=== PATIENT | female | born 1955 | race Hispanic/Latino ===

== ENCOUNTER 2018-08-01 12:44 | Observation (INO) | payer BC ==
[~2018-08-01] VITALS: Ht 152.4 cm; Wt 71.7 kg
[~2018-08-01 12:44] MED LIST: LISINOPRIL10 MG PO
--- OUTSIDE RECORDS SUMMARY | 2018-08-01 12:48 | XMS REPORT | Clinical Summary ---
Author Author [facility] Address Unknown Phone Unavailable Care Team Providers Care Chief Operator Reformer Name Role Phone Brando Pitts MD PCP Allergies No Known Allergies Medications End Date Status Medication Sig Dispensed Refills Start Date 07/19/2018 Discontinued metoprolol tartrate Take 25 mg by 0 (LOPRESSOR) 25 mg tablet mouth 2 (two) times a day. 07/19/2018 Discontinued hydroCHLOROthiazide Take 25 mg by 0 (HYDRODIURIL) 25 MG mouth daily. tablet Active Problems Not on file Encounters Care Team Description Date Type Specialty Geraldine Allan Jr., MD COPD, mild (HCC) 07/03/2018 Hospital Radiology Encounter Geraldine Allan Jr., MD COPD, mild (HCC) (Primary Dx) 07/03/2018 Transcribe Access Orders after 07/31/2017 Social History Date Tobacco Use Types Packs/Day Years Used Current Every Day Smoker Cigarettes 0.5 Smokeless Tobacco: Never Used Alcohol Use Drinks/Week oz/Week Comments Yes 6 Standard 3.6 drinks or equivalent Sex Assigned at Date Recorded Not on file Industry Job Start Date Occupation Not on file Not on file Not on file Travel End Travel History Travel Start No recent travel history available. Last Filed Vital Signs Not on file Plan of Treatment Health Maintenance Due Date Last Done Comments CERVICAL CANCER SCREENING 1977 BREAST CANCER SCREENING 2006 COLON CANCER SCREENING 2006 SHINGLES VACCINES (#1) 2006 INFLUENZA VACCINE 11/15/2018 Procedures Comments Procedure Name Priority Date/Time Associated Diagnosis XR CHEST 2 VW Routine 07/03/2018 COPD, mild (HCC) 6:11 PM CDT after 07/31/2017 Results * XR Chest 2 Vw (07/03/2018 6:11 PM CDT) Narrative Performed At EXAMINATION:XR CHEST 2 VW [facility] CLINICAL HISTORY:J44.9 Chronic obstructive pulmonary diseaseunspecified, j44.9 TECHNIQUE:XR CHEST 2 VW COMPARISON:None. FINDINGS: Lines/tubes:None. Heart and mediastinum:The cardiac silhouette is within normal limits for size. There is atherosclerotic calcification and mild ectasia of the thoracic aorta. Lungs:There is minimal atelectasis/scarring at the lung bases.There is no focal consolidation. There is no evidence of pulmonary edema. Pleura:There is no pleural effusion. There is no pneumothorax. Bones and Soft Tissues:There is mild demineralization and degenerative change of the visualized skeleton. There is no acute or suspicious osseous abnormality. IMPRESSION: No acute cardiopulmonary abnormality. [facility]-[id number] Procedure Note Interface, Radiology Results Incoming - 07/03/2018 6:16 PM CDT EXAMINATION: XR CHEST 2 VW CLINICAL HISTORY: J44.9 Chronic obstructive pulmonary disease unspecified, j44.9 TECHNIQUE: XR CHEST 2 VW COMPARISON: None. FINDINGS: Lines/tubes: None. Heart and mediastinum: The cardiac silhouette is within normal limits for size. There is atherosclerotic calcification and mild ectasia of the thoracic aorta. Lungs: There is minimal atelectasis/scarring at the lung bases. There is no focal consolidation. There is no evidence of pulmonary edema. Pleura: There is no pleural effusion. There is no pneumothorax. Bones and Soft Tissues: There is mild demineralization and degenerative change of the visualized skeleton. There is no acute or suspicious osseous abnormality. IMPRESSION: No acute cardiopulmonary abnormality. [facility]-[id number] Performing Organization Address City/State/Zipcode Phone Number [facility] [address] [place] [address] after 07/31/2017 Insurance Payer Benefit Subscriber ID Type Phone Address Plan / Group BCBS BCBS xxxxxxxxxxxxxx PPO CHOICE PPO/CATHERINE REINOSO PPO Advance Directives Patient has advance care planning documents on file. For more information, kameron e contact: Abbe Cheng [address] [place] [address]
[2018-08-01 13:15] LABS: BASOPHILS % 0.1 % (0.0-1.0); EOSINOPHILS % 0.2 % (0.0-6.0); HEMATOCRIT 45.2 % (34.2-44.1); HEMOGLOBIN 16.4 g/dL (12.0-16.0); LYMPHOCYTES % 19.6 % (18.0-39.1); MEAN CORPUSCULAR HEMOGLOBIN 33.4 pg (28-32); MEAN CORPUSCULAR HGB CONC 36.3 g/dL (31-35); MEAN CORPUSCULAR VOLUME 92.1 fL (81-99); MONOCYTES # (AUTO) 0.6 (0.2-0.8); MONOCYTES % 5.5 % (4.4-11.3); NEUTROPHILS # (AUTO) 7.5 (2.1-6.9); NEUTROPHILS % 74.3 % (38.7-80.0); PLATELET COUNT 286 x10e3/uL (140-360); RED BLOOD COUNT 4.91 x10e6/uL (3.6-5.1); RED CELL DISTRIBUTION WIDTH 11.9 % (11.7-14.4)
[2018-08-01 13:27] LABS: INR 0.87; PARTIAL THROMBOPLASTIN TIME 25.2 seconds (23.8-35.5); PROTHROMBIN TIME 12.3 seconds (11.9-14.5)
[2018-08-01 13:34] LABS: ALANINE AMINOTRANSFERASE 17 IU/L (0-55); ALBUMIN 3.2 g/dL (3.5-5.0); ALBUMIN/GLOBULIN RATIO 0.9 (0.8-2.0); ALKALINE PHOSPHATASE 93 IU/L (40-150); ANION GAP 14.1 mmol/L (8-16); BLOOD UREA NITROGEN 12 mg/dL (7-26); BUN/CREATININE RATIO 14 (6-25); CARBON DIOXIDE 22 mmol/L (22-29); CHLORIDE 93 mmol/L (98-107); CREATINE KINASE 40 IU/L (29-168); CREATININE, SERUM 0.88 mg/dL (0.57-1.11); EST GLOMERULAR FILTRATION RATE > 60 ML/MIN (60-); GLUCOSE 122 mg/dL (74-118); POTASSIUM 3.1 mmol/L (3.5-5.1); SODIUM 126 mmol/L (136-145)
--- NOTE | 2018-08-01 13:40 | Diagnostic Imaging Report ---
Exam: Head CT without contrast History: Possible seizure Comparison studies: None Technique: Axial images were obtained from the skull base to the vertex. Coronal and sagittal images reconstructed from the axial data. Dose modulation, iterative reconstruction, and/or weight based adjustment of the mA/kV was utilized to reduce the radiation dose to as low as reasonably achievable. Radiation dose: Total DLP: 832 mGy*cm. Estimated effective dose: DLP x 0.015 Intravenous contrast: None Findings: Scalp: No abnormalities. Bones: No fractures, blastic or lytic lesions. Brain sulci: Mildly prominent. Ventricles: Mild compensatory dilatation. No hydrocephalus. Extra-axial spaces: No masses, no fluid collection. Parenchyma: No mass, acute hemorrhage or acute cortical infarct. Chronic vascular insult in the right REHABILITATION THERAPIST territory and along the right MCA-REHABILITATION THERAPIST cortical border zone with encephalomalacia and gliosis in the right lateral and inferior occipital lobe and right inferior parietal lobe. There are chronic lacunar infarcts in the right striatocapsular region as well as ill-defined and confluent hypodensities in the supratentorial white matter which are nonspecific but are most compatible with chronic microvascular ischemic changes. Sellar/suprasellar region: Mostly CSF filled sella. Craniocervical junction: Patent foramen magnum. No Chiari one malformation. Incidental findings: Atherosclerotic calcifications in the carotid siphons. IMPRESSION: No acute intracranial abnormalities. Chronic findings: 1. Mild generalized cerebral volume loss. 2. Right parieto-occipital vascular insult. 3. Right striatocapsular lacunar infarcts. 4. Moderate supratentorial microvascular ischemic changes. Signed by: Dr. Cristi Skinner M.D. on 08/01/2018 1:37 PM
--- OUTSIDE RECORDS SUMMARY | 2018-08-01 14:24 | XMS REPORT | Clinical Summary ---
Author Author [facility] Address Unknown Phone Unavailable Care Team Providers Care Glazing Department Supervisor Name Role Phone Brando Pitts MD PCP [...] osseous abnormality. IMPRESSION: No acute cardiopulmonary abnormality. [facility]-[id number] Procedure Note Interface, Radiology Results Incoming - [...] osseous abnormality. IMPRESSION: No acute cardiopulmonary abnormality. [facility]-[id number] Performing Organization Address City/State/Zipcode Phone Number [facility] [address] [place] [address] after 07/31/2017 Insurance Payer Benefit Subscriber ID Type Phone Address Plan / Group BCBS BCBS xxxxxxxxxxxxxx PPO CHOICE PPO/CATHERINE REINOSO PPO Advance Directives Patient has advance care planning documents on file. For more information, kameron e contact: Abbe Cheng [address] [place] [address]
--- OUTSIDE RECORDS SUMMARY | 2018-08-01 14:24 | XMS REPORT ---
Author Author [facility] Address Unknown Phone Unavailable Care Team Providers Care Executive Director Contract Shop Name Role Phone Karly HARRIS Unavailable Unavailable Problems This patient has no known problems. Allergies, Adverse Reactions, Alerts This patient has no known allergies or adverse reactions. Medications This patient has no known medications. Results Test Description Test Time Test Comments Text Results Atomic Results Result Comments CT BRAIN WO 2018-08-01 13:31:00 [place] [address] Patient Name: DANIEL CORONADO MR #: [id number] : 1955 Age/Sex: 63/F Req #: [id number] [facility] Physician: Ordered by: BENY HARRIS MD Report #: [id number] Location: ER Room/Bed: Procedure: [id number] CT/CT BRAIN WO Exam Date: 08/01/18 Exam Time: 1315 REPORT STATUS: Signed Exam: Head CT without contrast History: Possible seizure Comparison studies: None Technique: Axial images were obtained from the skull base to the vertex. Coronal and sagittal images reconstructed from the axial data. Dose modulation, iterative reconstruction, and/or weight based adjustment of the mA/kV was utilized to reduce the radiation dose to as low as reasonably achievable. Radiation dose: Total DLP: 832 mGy*cm. Estimated effective dose: DLP x 0.015 Intravenous contrast: None Findings: Scalp: No abnormalities. Bones: No fractures, blastic or lytic lesions. Brain sulci: Mildly prominent. Ventricles: Mild compensatory dilatation. No hydrocephalus. Extra-axial spaces: No masses, no fluid collection. Parenchyma: No mass, acute hemorrhage or acute cortical infarct. Chronic vascular insult in the right CHILDREN COUNSELOR territory and along the right MCA-CHILDREN COUNSELOR cortical border zone with encephalomalacia and gliosis in the right lateral and inferior occipital lobe and right inferior parietal lobe. There are chronic lacunar infarcts in the right striatocapsular region as well as ill-defined and confluent hypodensities in the supratentorial white matter which are nonspecific but are most compatible with chronic microvascular ischemic changes. Sellar/suprasellar region: Mostly CSF filled sella. Craniocervical junction: Patent foramen magnum. No Chiari one malformation. Incidental findings: Atherosclerotic calcifications in the carotid siphons. IMPRESSION: No acute intracranial abnormalities. Chronic findings: 1. Mild generalized cerebral volume loss. 2. Right parieto- occipital vascular insult. 3. Right striatocapsular lacunar infarcts. 4. Moderate supratentorial microvascular ischemic changes. Signed by: Dr. Juan Skinner M.D. on 08/01/2018 1:37 PM Dictated By: JUAN SKINNER MD [id number] Transcribed By: DARNELL on 08/01/18 1680 COPY TO: BENY HARRIS MD
[2018-08-01] MEDS ORDERED: IOPAMIDOL 370 MG/ML 200 ML INFUS..BTL INJ ONE (14:25)
[2018-08-01] MEDS ORDERED: SODIUM CHLORIDE 0.9% 50ML 50 ML ONE (14:25)
[2018-08-01] MEDS: DIPHENHYDRAMINE HCL INJ 50 MG/ML VIAL IV PRN ×2 (15:13→21:19)
[2018-08-01] MEDS: METHYLPREDNISOLONE SOD SUCC 125 MG/2ML VIAL IV SCH (15:13)
[2018-08-01] MEDS: SODIUM CHLORIDE 0.9% 1000ML 1,000 ML IV SCH (15:13)
[2018-08-01 15:40] VITALS: BP 127/60
[2018-08-01 15:52] VITALS: BP 127/60
[2018-08-01] MEDS ORDERED: METOPROLOL TART25 MG PO (16:59)
[2018-08-01] MEDS ORDERED: HYDROCHLOROTHIA25 MG (16:59)
--- NOTE | 2018-08-01 19:55 | NUR ---
Got report from previous nurse. Call light within reach. Patient in bed. Family at bedside.
[2018-08-01 20:00] VITALS: BP 107/54
[2018-08-01 21:00] VITALS: BP 107/54
--- NOTE | 2018-08-01 21:45 | NUR ---
Called and talked to Dr. Pitts about giving the patient metoprolol 25 mg PO tonight. He ordered to give the dose to the patient.
[2018-08-01] MEDS: METOPROLOL TARTRATE 25 MG TAB PO SCH (22:02)
[2018-08-02] VITALS: BP 106/56
[2018-08-02] MEDS: SODIUM CHLORIDE 0.9% 1000ML 1,000 ML IV SCH ×2 (02:10→20:15)
[2018-08-02 04:00] VITALS: BP 108/54
[2018-08-02 06:02] LABS: BASOPHILS % 0.1 % (0.0-1.0); HEMATOCRIT 37.7 % (34.2-44.1); HEMOGLOBIN 13.7 g/dL (12.0-16.0); LYMPHOCYTES # (AUTO) 1.1 (1.0-3.2); LYMPHOCYTES % 14.4 % (18.0-39.1); MEAN CORPUSCULAR HGB CONC 36.3 g/dL (31-35); MEAN CORPUSCULAR VOLUME 93.5 fL (81-99); MONOCYTES # (AUTO) 0.2 (0.2-0.8); NEUTROPHILS # (AUTO) 6.2 (2.1-6.9); NEUTROPHILS % 83.1 % (38.7-80.0); PLATELET COUNT 230 x10e3/uL (140-360); RED BLOOD COUNT 4.03 x10e6/uL (3.6-5.1); RED CELL DISTRIBUTION WIDTH 11.9 % (11.7-14.4)
[2018-08-02] MEDS: METHYLPREDNISOLONE SOD SUCC 125 MG/2ML VIAL IV SCH ×3 (06:07→21:57)
[2018-08-02 06:17] LABS: ALANINE AMINOTRANSFERASE 14 IU/L (0-55); ALBUMIN 2.7 g/dL (3.5-5.0); ALBUMIN/GLOBULIN RATIO 0.9 (0.8-2.0); ALKALINE PHOSPHATASE 70 IU/L (40-150); ANION GAP 12.7 mmol/L (8-16); BLOOD UREA NITROGEN 15 mg/dL (7-26); BUN/CREATININE RATIO 19 (6-25); CALCIUM 8.3 mg/dL (8.4-10.2); CARBON DIOXIDE 21 mmol/L (22-29); CHLORIDE 96 mmol/L (98-107); EST GLOMERULAR FILTRATION RATE > 60 ML/MIN (60-); GLUCOSE 225 mg/dL (74-118); SODIUM 127 mmol/L (136-145)
[2018-08-02 06:20] LABS: POTASSIUM 2.7 mmol/L (3.5-5.1)
--- NOTE | 2018-08-02 06:22 | NUR ---
Called and talked to Dr. Pitts about patient having a potassium of 2.7. Dr. Pitts ordered 40 mg IV and 40 mg PO now.
[2018-08-02] MEDS ORDERED: POTASSIUM CHLORIDE 10MEQ EA PO ONE (06:30)
[2018-08-02] MEDS ORDERED: POTASSIUM CHLORIDE 20MEQ/100ML 200 ML IV ONE (06:30)
[2018-08-02] MEDS ORDERED: CLONIDINE HCL 0.1 MG TAB PO PRN ×2 (07:00→07:15)
[2018-08-02] MEDS ORDERED: HYDROXYZINE HCL 25 MG TAB PO PRN (07:00)
[2018-08-02] MEDS ORDERED: ONDANSETRON HCL INJ 2MG/ML 2ML 2 MG/ML VIAL IV PRN (07:00)
[2018-08-02] MEDS ORDERED: ASPIRIN 81 MG CHEW TAB PO ONE (07:00)
[2018-08-02] MEDS: ALBUTEROL SULF 0.083% NEB SOLN 3 ML NEB NEB SCH ×4 (07:00→19:40)
[2018-08-02] MEDS ORDERED: SODIUM CHLORIDE 0.9% 250ML 0 ML ONE (07:06)
[2018-08-02] MEDS: POTASSIUM CHLORIDE 20MEQ/100ML 100 ML IV SCH ×2 (07:09→09:41)
--- NOTE | 2018-08-02 07:10 | NUR ---
Gave report to oncoming nurse. Patient in bed. Call light within reach. at bedside
[2018-08-02] MEDS ORDERED: ONDANSETRON HCL 4 MG ORAL DISINTEGRATING TAB PO PRN (07:15)
[2018-08-02] MEDS ORDERED: ATORVASTATIN 20 MG TAB PO SCH ×2 (07:30→21:00)
[2018-08-02] MEDS ORDERED: ATORVASTATIN 20 MG TAB PO ONE (07:30)
[2018-08-02 07:37] VITALS: BP 115/57
[2018-08-02 07:38] LABS: CREATINE KINASE MB 0.7 ng/mL (0-5.0)
[2018-08-02] MEDS ORDERED: POTASSIUM CHLORIDE 20MEQ/100ML 100 ML IV SCH (08:00)
[2018-08-02] MEDS: POTASSIUM CHLORIDE 20 MEQ TAB CR PO SCH (08:38)
[2018-08-02] MEDS: ASPIRIN 81 MG ENTERIC COATED PO SCH (08:38)
[2018-08-02] MEDS: METOPROLOL TARTRATE 25 MG TAB PO SCH ×2 (08:39→16:02)
[2018-08-02 08:47] VITALS: BP 115/57
--- NOTE | 2018-08-02 10:20 | History and Physical ---
This is a 63-year-old female comes in with apparent seizures. HISTORY OF PRESENTING ILLNESS: Ms. Lauryn Smith is a 63-year-old female with a history of hypertension, was in usual state of health until about 2 weeks ago the patient did experience some kind of chest pain, which was noted as pounding in the back and also chest pain which was pounding noted with palpation on anterior chest wall, the patient did not mind this, but yesterday, the patient had allergic reaction to either medication and/or to poison janki. The patient came into the clinic, was given Solu-Medrol and the patient went home after which the patient got extremely tired. The patient laid down, was having some food and apparently had a seizure, which lasted for about 2 minutes according to the did not have any postictal symptoms, did lose urine. In about 2 to 3 seconds, the patient gained consciousness and was aware of her surroundings. No chest pain noted at that time. Incidentally, the patient has had an appointment with the patent counsel and was scheduled for cardiac cath. PAST MEDICAL HISTORY: History of hypertension. MEDICATIONS: Include hydrochlorothiazide and metoprolol 25 mg twice a day. ALLERGIES: NO KNOWN DRUG ALLERGIES. PAST SURGICAL HISTORY: History of right wrist surgery. REVIEW OF SYSTEMS: Positive for chest pain. Positive for shortness of breath with exertion. No PND nor orthopnea. No nausea, vomiting, or diarrhea. No constipation. No rectal bleeding. No hematochezia. No hematemesis. Positive for edema as mentioned above. FAMILY HISTORY: Positive for hypertension and CAD. PHYSICAL EXAMINATION: VITAL SIGNS: Temperature is 97.1, pulse of 78, respirations of 18, blood pressure is 108/54, pulse oximetry of 96%. HEENT: Normocephalic, atraumatic. Pupils are reactive to light and accommodation. CVS: S1, S2 normal. Regular rate and rhythm. LUNGS: Decreased air entry into all lung cunha. ABDOMEN: Nontender, nondistended. EXTREMITIES: No clubbing. No cyanosis. Positive for trace edema. NEUROLOGIC: Cranial nerves normal. No focal deficits noted. Asymptomatic. LABORATORY VALUES: Initial white count is 10.03, hemoglobin of 16.4, hematocrit 45.2, neutrophil count was 74.3. Coags were normal. Chemistry, sodium of 126, potassium of 3.1, BUN of 12, creatinine 0.88, glucose of 122, total bilirubin was 1.6. IMAGING STUDIES: Brain CT was done, showed mild generalized volume loss, right occipital vascular insult, right striatocapsular lacunar infarct and moderate supratentorial microvascular changes. ASSESSMENT: 1. CVA. 2. Seizures. 3. Hypertension. 4. Chest pain. 5. Possible history of coronary artery disease. 6. Hypertension. 7. Smoking history. PLAN: 1. Do MRI of the brain, MRA of the brain and neck. 2. Echocardiogram will be ordered. 3. The patient will be put on aspirin. 4. O2 supplementation. The patient also has COPD. We will continue with albuterol and Atrovent treatments as needed. A consult with Neurology and Cardiology will be done. The patient will be put inpatient. Further recommendation and clinical course, we will continue to monitor the patient and the patient's thyroid and lipid panels will be assessed too. MD ROBBIE Sol/MODL /[id number]
[2018-08-02 11:57] LABS: CHOL/HDL RATIO 2.3 (3.0-3.6)
[2018-08-02 15:31] VITALS: BP 110/56
--- NOTE | 2018-08-02 15:54 | Diagnostic Imaging Report ---
EXAMINATION: Brain MRI and MR angiogram of the [place] and Neck without contrast. CLINICAL HISTORY: Cerebrovascular accident, seizure. COMPARISON: Head CT 08/01/2018 TECHNIQUE: Brain: Sagittal T2; axial DWI, T2, FLAIR, T1-IR, T2 gradient echo; coronal FLAIR. MRAs: 3D TOF and 2D-TOF images were obtained of the brain and neck. Image quality: Incomplete visualization of the [place] vessels on axial source images. Motion artifact limits evaluation of the MR angiogram of the neck. BRAIN MRI FINDINGS: Parenchyma: -Chronic infarct in the right FILTRATION SUPERVISOR territory and along the right MCA-FILTRATION SUPERVISOR cortical border zone with encephalomalacia and gliosis in the right lateral and inferior occipital lobe and right inferior parietal lobe. Mild right inferior cervical cortical T1 hyperintense laminar necrosis is noted. -Chronic lacunar infarcts in the right striatocapsular region and bilateral frontoparietal lobo radiata. -Scattered moderate confluent periventricular white matter T2 and FLAIR hyperintense foci, most likely nonspecific chronic microvascular ischemic changes. -No mass, hemorrhage, acute or chronic infarcts. Skull: Unremarkable. Vessels: Expected flow voids present in the major arteries and dural sinuses. Extra-axial spaces: No abnormal signal intensity or mass effect. Brain volume: Within normal limits for age. Ventricles: No hydrocephalus or displacement. Foramen magnum: Unremarkable. Sella: Unremarkable. Paranasal / mastoid sinuses: No significant inflammatory disease. MRA OF THE [place] OF [place] : The vessels of the [place] (including ICAs, ACAs and ACAs) and posterior circulation (including vertebral, basilar and fire claims adjuster) are patent, there is no evidence of significant stenosis. No vascular malformation or aneurysmal dilatation is identified. Anatomic variation: Anterior Communicating Artery: Patent Posterior Communicating Arteries: Patent bilaterally Vertebral arteries: Codominant MRA OF THE NECK: If present, stenosis of the carotid bulbs is measured based on NASCET criteria i.e area of maximum stenosis compared to the cervical ICA distal to the bulb. Aortic arch and origin of the vessels: Unremarkable. Right Carotid Artery: The common carotid, carotid bulb, internal and external carotid arteries at the level of the neck are normal in caliber, and patent, no evidence of stenoses. Left Carotid Artery: The common carotid, carotid bulb, internal and external carotid arteries at the level of the neck are normal in caliber, and patent, no evidence of stenoses. Vertebral Arteries: Both are normal in morphology and caliber. Both are codominant. No significant stenosis is seen. IMPRESSION: Brain: 1. No acute infarct. 2. Chronic right occipital and parietal infarct. 3. Moderate chronic microvascular ischemic changes and multiple chronic lacunar infarcts as detailed above. 4. Mild generalized brain thrombosis. MR angiograms: Suboptimal evaluation, grossly no large vessel occlusion or hemodynamically significant stenosis of the carotid or vertebral arteries in the head or neck. Signed by: Dr. Charo Guillermo M.D. on 08/02/2018 3:51 PM
--- NOTE | 2018-08-02 15:54 | Diagnostic Imaging Report ---
EXAMINATION: Brain MRI and MR angiogram of the [place] and Neck without contrast. CLINICAL HISTORY: Cerebrovascular accident, seizure. COMPARISON: Head CT 08/01/2018 TECHNIQUE: Brain: Sagittal T2; axial DWI, T2, FLAIR, T1-IR, T2 gradient echo; coronal FLAIR. MRAs: 3D TOF and 2D-TOF images were obtained of the brain and neck. Image quality: Incomplete visualization of the [place] vessels on axial source images. Motion artifact limits evaluation of the MR angiogram of the neck. BRAIN MRI FINDINGS: Parenchyma: -Chronic infarct in the right DIRECTOR PROSPECT territory and along the right MCA-DIRECTOR PROSPECT cortical border zone with encephalomalacia and gliosis in the right lateral and inferior occipital lobe and right inferior parietal lobe. Mild right inferior cervical cortical T1 hyperintense laminar necrosis is noted. -Chronic lacunar infarcts in the right striatocapsular region and bilateral frontoparietal lobo radiata. -Scattered moderate confluent periventricular white matter T2 and FLAIR hyperintense foci, most likely nonspecific chronic microvascular ischemic changes. -No mass, hemorrhage, acute or chronic infarcts. Skull: Unremarkable. Vessels: Expected flow voids present in the major arteries and dural sinuses. Extra-axial spaces: No abnormal signal intensity or mass effect. Brain volume: Within normal limits for age. Ventricles: No hydrocephalus or displacement. Foramen magnum: Unremarkable. Sella: Unremarkable. Paranasal / mastoid sinuses: No significant inflammatory disease. MRA OF THE [place] OF [place] : The vessels of the [place] (including ICAs, ACAs and ACAs) and posterior circulation (including vertebral, basilar and tenter feeder) are patent, there is no evidence of significant stenosis. No vascular malformation or aneurysmal dilatation is identified. Anatomic variation: Anterior Communicating Artery: Patent Posterior Communicating Arteries: Patent bilaterally Vertebral arteries: Codominant MRA OF THE NECK: If present, stenosis of the carotid bulbs is measured based on NASCET criteria i.e area of maximum stenosis compared to the cervical ICA distal to the bulb. Aortic arch and origin of the vessels: Unremarkable. Right Carotid Artery: The common carotid, carotid bulb, internal and external carotid arteries at the level of the neck are normal in caliber, and patent, no evidence of stenoses. Left Carotid Artery: The common carotid, carotid bulb, internal and external carotid arteries at the level of the neck are normal in caliber, and patent, no evidence of stenoses. Vertebral Arteries: Both are normal in morphology and caliber. Both are codominant. No significant stenosis is seen. IMPRESSION: Brain: 1. No acute infarct. 2. Chronic right occipital and parietal infarct. 3. Moderate chronic microvascular ischemic changes and multiple chronic lacunar infarcts as detailed above. 4. Mild generalized brain thrombosis. MR angiograms: Suboptimal evaluation, grossly no large vessel occlusion or hemodynamically significant stenosis of the carotid or vertebral arteries in the head or neck. Signed by: Dr. Charo Guillermo M.D. on 08/02/2018 3:51 PM
--- NOTE | 2018-08-02 15:54 | Diagnostic Imaging Report ---
EXAMINATION: Brain MRI and MR angiogram of the [place] of [place] and Neck without contrast. CLINICAL HISTORY: Cerebrovascular accident, seizure. COMPARISON: Head CT 08/01/2018 TECHNIQUE: Brain: Sagittal T2; axial DWI, T2, FLAIR, T1-IR, T2 gradient echo; coronal FLAIR. MRAs: 3D TOF and 2D-TOF images were obtained of the brain and neck. Image quality: Incomplete visualization of the [place] vessels on axial source images. Motion artifact limits evaluation of the MR angiogram of the neck. BRAIN MRI FINDINGS: Parenchyma: -Chronic infarct in the right CUSTOMER CARE MANAGER territory and along the right MCA-CUSTOMER CARE MANAGER cortical border zone with encephalomalacia and gliosis in the right lateral and inferior occipital lobe and right inferior parietal lobe. Mild right inferior cervical cortical T1 hyperintense laminar necrosis is noted. -Chronic lacunar infarcts in the right striatocapsular region and bilateral frontoparietal lobo radiata. -Scattered moderate confluent periventricular white matter T2 and FLAIR hyperintense foci, most likely nonspecific chronic microvascular ischemic changes. -No mass, hemorrhage, acute or chronic infarcts. Skull: Unremarkable. Vessels: Expected flow voids present in the major arteries and dural sinuses. Extra-axial spaces: No abnormal signal intensity or mass effect. Brain volume: Within normal limits for age. Ventricles: No hydrocephalus or displacement. Foramen magnum: Unremarkable. Sella: Unremarkable. Paranasal / mastoid sinuses: No significant inflammatory disease. MRA OF THE [place] OF [place] : The vessels of the [place] (including ICAs, ACAs and ACAs) and posterior circulation (including vertebral, basilar and senior web engineer) are patent, there is no evidence of significant stenosis. No vascular malformation or aneurysmal dilatation is identified. Anatomic variation: Anterior Communicating Artery: Patent Posterior Communicating Arteries: Patent bilaterally Vertebral arteries: Codominant MRA OF THE NECK: If present, stenosis of the carotid bulbs is measured based on NASCET criteria i.e area of maximum stenosis compared to the cervical ICA distal to the bulb. Aortic arch and origin of the vessels: Unremarkable. Right Carotid Artery: The common carotid, carotid bulb, internal and external carotid arteries at the level of the neck are normal in caliber, and patent, no evidence of stenoses. Left Carotid Artery: The common carotid, carotid bulb, internal and external carotid arteries at the level of the neck are normal in caliber, and patent, no evidence of stenoses. Vertebral Arteries: Both are normal in morphology and caliber. Both are codominant. No significant stenosis is seen. IMPRESSION: Brain: 1. No acute infarct. 2. Chronic right occipital and parietal infarct. 3. Moderate chronic microvascular ischemic changes and multiple chronic lacunar infarcts as detailed above. 4. Mild generalized brain thrombosis. MR angiograms: Suboptimal evaluation, grossly no large vessel occlusion or hemodynamically significant stenosis of the carotid or vertebral arteries in the head or neck. Signed by: Dr. Charo Guillermo M.D. on 08/02/2018 3:51 PM
[2018-08-02] MEDS: NICOTINE 21 MG/EA PATCH TOP SCH (16:01)
[2018-08-02 16:15] LABS: CREATINE KINASE 36 IU/L (29-168)
[2018-08-02] MEDS ORDERED: NICOTINE 21 MG/EA PATCH TOP SCH (18:00)
--- NOTE | 2018-08-02 19:00 | NUR ---
Got report from previous nurse. Call light within reach. Patient in bed. at bedside.
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
[2018-08-02 20:29] VITALS: BP 118/56
[2018-08-03] MEDS: ALBUTEROL SULF 0.083% NEB SOLN 3 ML NEB NEB SCH ×5 (00:35→15:00)
[2018-08-03 00:37] VITALS: BP 134/62
[2018-08-03 00:41] LABS: CREATINE KINASE MB 1.3 ng/mL (0-5.0)
--- NOTE | 2018-08-03 00:44 | Consultation ---
DATE OF CONSULTATION: 08/02/2018 Cardiology Consultation. REASON FOR CONSULTATION: Evaluate cardiac status. HISTORY OF PRESENT ILLNESS: Ms. Smith is a 63-year-old female with past medical history of hypertension; COPD; heavy smoker; alcohol dependence, drinks 6 large pints of beer per day; history of prior stroke, many years ago, where she had right-sided hemiparesis with good recovery. She is cared for by Dr. Alejandra, who is an outside roller machine operator, and incidentally was in the process of evaluating her and apparently seemed to have had an abnormal stress test. The patient, when we spoke to her, denied any chest pain or discomfort. She reports that she was in usual state of health up until 2 days ago where she developed hives, swelling, and rash all over her body. She indeed had an allergic reaction to something, which is not entirely clear and she came to the clinic and was treated with steroids, specifically Solu-Medrol and she went home. She reports when she went home, she was in the process of eating a sandwich and all of a sudden became stiff and started shaking and gurgling. That is when her noted that she was having seizure-like event and managed to sweep out a piece of food from her mouth. The patient reports that she first noted something was wrong when she found her on top of her while she was on the ground. EMS was on route and when EMS crew came, she reported feeling overall very very groggy and unable to speak or say much to them with difficulty in her thinking. She reports that she urinated all over herself and reports that her brain was overall foggy feeling and took several hours to go back to her baseline self. The patient denied any chest pain or discomfort. She denied any palpitations. Denies any orthopnea or PND. In terms of her alcohol use, had reported not taking any alcohol for a good 24 hours prior to this event. Again, she has a heavy history of drinking. PAST MEDICAL HISTORY: 1. Hypertension, essential. 2. Hypercholesterolemia. 3. History of stroke with prior history of right hemiparesis with good recovery. 4. COPD, smoker. PAST SURGICAL HISTORY: 1. History of right wrist surgery. 2. History of tummy tuck surgery in 1982. FAMILY HISTORY: Father had a stroke in his 40s and eventually in his 60s from a stroke. Mother had heart disease and heart attack in her 60s. SOCIAL HISTORY: She is a 1/2 pack per day smoker and smoked for many, many years. She reports 6 large beers a day. Denies any illicit drug use. ALLERGIES: NO KNOWN DRUG ALLERGIES. HOME MEDICATIONS: Include metoprolol 25 mg b.i.d., and hydrochlorothiazide 25 mg daily. REVIEW OF SYSTEMS: GENERAL: Positive for fatigue, malaise. Denies any fevers or chills or any weight changes. HEENT: Had some headache and fogginess in her thinking. Denies any diplopia, sore throat, or stuffy nose. RESPIRATORY: Denies any pleuritic chest pain. Has occasional nonproductive cough. CARDIOVASCULAR: Denies any chest pain or discomfort. No orthopnea, PND, or palpitations. GI: Denies any abdominal pain, bright red blood per rectum, melena, hematemesis. Does have decreased appetite recently. MUSCULOSKELETAL: Denies any back pains, knee pains, or swelling. Denies any typical claudication symptoms. : Denies any dysuria, pyuria, changes in urinary frequency. Positive for incontinence, one time of urine with this neurologic event. SKIN: No rashes or breakdown. NEUROLOGIC: Positive for episode as noted as per HPI with postprocedure expressive aphasia. Remainder review of systems negative otherwise mentioned. PHYSICAL EXAMINATION: VITAL SIGNS: Height of 60 inches, weight of 155 pounds, BMI is 30.3. Temperature of 98.8, pulse of 77, respiratory rate of 19, blood pressure 110/56, and O2 saturation 99% on room air. GENERAL: This is a well-nourished and well-developed lady, who is currently in no apparent distress. HEENT: Normocephalic, atraumatic. Pupils equal, round, reactive to light. Extraocular movements are intact. Oropharynx is clear. NECK: No elevation in jugular venous pulsation. Faint right carotid bruit. CARDIOVASCULAR: Regular rate and rhythm. Normal S1, S2. A 2/6 systolic ejection murmur at the right upper sternal border. LUNGS: Show moderate decreased air flow throughout lung cunha compatible with COPD type changes. ABDOMEN: Soft, nontender, nondistended. Normoactive bowel sounds. No hepatosplenomegaly. BACK: No costovertebral angle tenderness. EXTREMITIES: Warm with 1 to 2+ radial pulses, 1+ femoral pulses, and 0 to 1+ pedal pulses. NEUROLOGIC: Cranial nerves 2 through 12 are intact. Strength is 5/5, grossly nonfocal. PSYCH: Normal fluent speech. Appropriate affect. No anxiety or delusions. LABORATORY DATA: White count of 7.4, hemoglobin 13.7, hematocrit 37.7, and platelets of 230. Sodium of 127, potassium of 2.7, chloride of 96, bicarb of 21, BUN 15, creatinine 0.8, glucose of 225. A1c is 5.2%, calcium 8.3, magnesium 2.0, AST 19, ALT 14, alkaline phosphatase 70, total protein of 5.7, albumin of 2.7. INR is 0.87. Lipid profile shows total cholesterol 156, HDL 69, LDL 67, triglycerides of 99. Brain CT shows right parieto-occipital vascular insults, right striatocapsular lacunar infarcts and moderate supratentorial microvascular ischemic changes. Head MRA shows no acute infarct. Chronic right occipital and parietal infarct and moderate chronic microvascular ischemic changes and multiple chronic lacunar infarcts. Neck MRA shows no significant stenosis in the carotid arteries and no significant stenosis in the vertebral arteries. EKG reveals normal sinus rhythm, normal axis, and no ST-T wave changes concerning for ischemia. DIAGNOSES: 1. Syncope with seizure-like episode. 2. History of a recent positive stress test with outside roller machine operator. 3. Chronic obstructive pulmonary disease, smoker. 4. History of stroke, as evidenced on brain MRI. 5. 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 6. Alcohol dependence with high risk situation for withdrawal symptoms. 7. Recent history of allergic reaction to unknown cause. PLAN/RECOMMENDATIONS: 1. From a cardiovascular standpoint, we had an extensive discussion with the patient and daughter/family at bedside today. We reviewed her case in entirety as well as differential diagnoses and family is convinced that she had a seizure episode. Nonetheless, risk factors for this is perhaps some alcohol withdrawal and structural brain abnormality from her previous history of stroke and concerning features are post-event confusion with expressive aphasia and brain fogginess. At the present time, she has had serial cardiac enzymes and went from a troponin of 0.004 to a less than 0.001 and no findings compatible with any arrhythmias. 2. We will monitor on telemetry. 3. Echocardiogram, which was done showing preserved left ventricular ejection fraction without any significant valvular issues. 4. Patient's family feels our primary goal will be focusing on her neuro status and they stated reluctance to proceeding with cardiac catheterization, which I tend to agree. This may not necessarily be the best time, especially if she is not endorsing any electrical hemodynamic instability or symptom instability. 5. Lipid profile reviewed is suggestive of severe alcoholism as HDL is elevated and LDL is very low. 6. Extensive counseling on lifestyle modification. 7. We will await neurologic evaluation and input in this case. 8. The patient is to have an EEG for further evaluation. 9. We will continue to follow this patient. Thank you for this referral. MD CARY Lopes/MAYUR /[id number]
[2018-08-03 00:45] VITALS: BP 134/62
[2018-08-03 04:50] VITALS: BP 96/50
[2018-08-03] MEDS: SODIUM CHLORIDE 0.9% 1000ML 1,000 ML IV SCH ×2 (04:50→07:03)
[2018-08-03] MEDS: METHYLPREDNISOLONE SOD SUCC 125 MG/2ML VIAL IV SCH ×2 (05:54→14:19)
[2018-08-03 06:06] LABS: BASOPHILS % 0.1 % (0.0-1.0); HEMATOCRIT 31.4 % (34.2-44.1); HEMOGLOBIN 10.9 g/dL (12.0-16.0); LYMPHOCYTES # (AUTO) 0.9 (1.0-3.2); LYMPHOCYTES % 7.6 % (18.0-39.1); MEAN CORPUSCULAR HEMOGLOBIN 33.4 pg (28-32); MEAN CORPUSCULAR HGB CONC 34.7 g/dL (31-35); MEAN CORPUSCULAR VOLUME 96.3 fL (81-99); MONOCYTES # (AUTO) 0.6 (0.2-0.8); NEUTROPHILS # (AUTO) 9.7 (2.1-6.9); NEUTROPHILS % 86.1 % (38.7-80.0); PLATELET COUNT 228 x10e3/uL (140-360); RED BLOOD COUNT 3.26 x10e6/uL (3.6-5.1); RED CELL DISTRIBUTION WIDTH 12.2 % (11.7-14.4)
[2018-08-03 06:47] LABS: ALANINE AMINOTRANSFERASE 15 IU/L (0-55); ALBUMIN 2.5 g/dL (3.5-5.0); ALBUMIN/GLOBULIN RATIO 0.9 (0.8-2.0); ALKALINE PHOSPHATASE 54 IU/L (40-150); ANION GAP 16.3 mmol/L (8-16); BLOOD UREA NITROGEN 11 mg/dL (7-26); BUN/CREATININE RATIO 16 (6-25); CALCIUM 8.2 mg/dL (8.4-10.2); CARBON DIOXIDE 20 mmol/L (22-29); CHLORIDE 110 mmol/L (98-107); CHOL/HDL RATIO 2.1 (3.0-3.6); CHOLESTEROL 148 MD/DL (0-199); EST GLOMERULAR FILTRATION RATE > 60 ML/MIN (60-); GLUCOSE 173 mg/dL (74-118); HDL CHOLESTEROL 71 MG/DL (40-60); LDL CHOLESTEROL 66 MG/DL (60-130); MAGNESIUM 2.3 MG/DL (1.3-2.1); POTASSIUM 4.3 mmol/L (3.5-5.1); SODIUM 142 mmol/L (136-145); TRIGLYCERIDES 57 MG/DL (0-149)
--- NOTE | 2018-08-03 07:02 | NUR ---
Gave report to oncoming nurse. Call light within reach. patient in bed.
--- NOTE | 2018-08-03 07:34 | Progress Note ---
DATE: SUBJECTIVE: The patient is a 63-year-old female. The patient came in for seizure-like activities and syncopal episode. Currently, the patient is asymptomatic. No complaints. No seizure activities. No chest pain. Positive for some shortness of breath. No nausea, vomiting, or diarrhea. No constipation. No rectal bleeding. The patient is alert and oriented x3. OBJECTIVE: VITAL SIGNS: Temperature is 97.4, pulse of 90, respirations of 18, blood pressure is 96/50, pulse oximetry of 93%. HEENT: Normocephalic, atraumatic. Pupils are reactive to light and accommodation. CVS: S1, S2 normal. Regular rate and rhythm. ABDOMEN: Nontender, nondistended. EXTREMITIES: No clubbing, no cyanosis, no edema. NEUROLOGIC: Normal. Cranial nerves normal. No focal sensory or motor deficits. IMAGING STUDIES: MRI of the brain, MRA of the neck and head shows no acute infarct, chronic right occipital and parietal infarcts, moderate and chronic microvascular changes and multiple chronic lacunar infarct and mild generalized brain thrombosis. The patient's echocardiogram is preserved. LABORATORY DATA: The patient's LDL shows 67, HDL of 69, ratio is 2.3. Coags are normal. ASSESSMENT: A 63-year-old female with: 1. Possible seizure. 2. Syncopal episode. 3. History of strokes. 4. History of smoking. 5. History of hypertension. 6. History of COPD. PLAN: Do EEG today. The patient can be discharged home if the EEG is normal. The patient also has been put on statin and will be discharged on statin old infarcts. Further recommendation and clinical course, the patient can be discharged home and Neurology and Cardiology are following the patient. Further recommendation per clinical course. MD JULY SolJ/MODL /[id number]
[2018-08-03 08:27] VITALS: BP 122/57
[2018-08-03] MEDS: METOPROLOL TARTRATE 25 MG TAB PO SCH ×2 (10:39→16:45)
[2018-08-03] MEDS: NICOTINE 21 MG/EA PATCH TOP SCH (10:39)
[2018-08-03] MEDS: POTASSIUM CHLORIDE 20 MEQ TAB CR PO SCH (10:39)
[2018-08-03] MEDS: ASPIRIN 81 MG ENTERIC COATED PO SCH (10:39)
[2018-08-03 16:00] VITALS: BP 120/56
[2018-08-03] MEDS ORDERED: LIPITOR20 MG PO (17:13)
--- NOTE | 2018-08-03 19:57 | Electroencephalogram ---
DATE OF STUDY: 08/03/2018 REQUESTING PHYSICIAN: Minoo Diana MD HISTORY: This 63-year-old woman with a history of a possible seizure is having an EEG for evaluation of epileptiform activity. The patient is not taking any medication which might affect the EEG. TECHNIQUE: This is a routine, portable EEG, recorded digitally, using the International 10/20 electrode placement system, and done in the inpatient setting with the patient awake. The EEG is adequate for interpretation. DESCRIPTION: Well-organized, well-sustained, 10-11 hertz activity is best seen symmetrically over the posterior head regions. No focal or epileptiform activity is recorded. Sleep is not recorded. Photic stimulation does produce a driving response. Hyperventilation is not performed. INTERPRETATION: This EEG is normal with the patient awake. No epileptiform discharges are seen. Clinical correlation is recommended. Minoo Diana MD CP/MODL /[id number] MTDD
== END 2018-08-03 17:33 | disposition home or self-care (01) ==
LOC: ER 12:44 → ERHOLD 14:21 → IMCU 15:29
PROVIDERS: ADMIT Family Medicine; ATTEND Family Medicine
DX: R56.9 Unspecified convulsions (principal); R55 Syncope and collapse; I10 Essential (primary) hypertension; Z82.49 Family history of ischemic heart disease and other diseases of the circulatory system; R07.9 Chest pain, unspecified; Z87.891 Personal history of nicotine dependence; J44.9 Chronic obstructive pulmonary disease, unspecified; I69.398 Other sequelae of cerebral infarction; H53.9 Unspecified visual disturbance; K70.9 Alcoholic liver disease, unspecified; F10.20 Alcohol dependence, uncomplicated
CPT/HCPCS: 36415 ×3; 70450; 70544; 70547; 70551; 80053 ×3; 80061 ×2; 82550 ×2; 82553 ×2; 82948; 83036; 83735 ×2; 84484 ×2; 85025 ×3; 85610; 85730; 93005; 93306; 94640 ×4; 95812; 95819; 99284; G0378 ×3; J1200; J2930 ×3; J3410; J3480; J7030 ×3; Q9967; J7050

== ENCOUNTER 2018-10-01 11:14 | Emergency (ER) | payer BC ==
[~2018-10-01] VITALS: Ht 152.4 cm; Wt 66.2 kg
[~2018-10-01 11:14] MED LIST changes: +HYDROCHLOROTHIA25 MG; +LIPITOR20 MG PO; +METOPROLOL TART25 MG PO
--- OUTSIDE RECORDS SUMMARY | 2018-10-01 11:19 | XMS REPORT | Clinical Summary ---
Author Author [facility] Organization [facility] Address Unknown Phone Unavailable Care Team Providers [facility] Manager Name Role Phone Brando Pitts MD PCP Allergies No Known Allergies Medications End Date Status Medication Sig Dispensed Refills Start Date Active metoprolol tartrate Take 25 mg by 0 (LOPRESSOR) 25 mg tablet mouth 2 (two) times a day. 07/19/2018 Discontinued metoprolol tartrate Take 25 mg by 0 (LOPRESSOR) 25 mg tablet mouth 2 (two) times a day. 07/19/2018 Discontinued hydroCHLOROthiazide Take 25 mg by 0 (HYDRODIURIL) 25 MG mouth daily. tablet 09/03/2018 Discontinued hydroCHLOROthiazide Take 25 mg by 0 (HYDRODIURIL) 25 MG mouth daily. tablet Active Problems Not on file Encounters Care Team Description Date Type Specialty Israel [place] MD CV LEFT HEART CATH LV GRAM WITH CORS [18465 (CPT)] 09/03/2018 Surgery Procedural Cardiology Israel [place] MD Angina at rest (HCC) 09/03/2018 Hospital Procedural Cardiology Encounter Geraldine Allan Jr., MD COPD, mild (HCC) 07/03/2018 Hospital Radiology Encounter Geraldine Allan Jr., MD COPD, mild (HCC) (Primary Dx) 07/03/2018 Transcribe Access Orders after 09/30/2017 Family History Medical History Relation Name Comments Heart disease Brother Heart disease Sister Relation Name Status Comments Brother Father Mother Sister Alive Social History Date Tobacco Use Types Packs/Day Years Used Current Every Day Smoker Cigarettes 0.5 Smokeless Tobacco: Current User Tobacco Cessation: Ready to Quit: No Alcohol Use Drinks/Week oz/Week Comments Yes 6 Standard 3.6 drinks or equivalent Sex Assigned at Date Recorded Not on file Industry Job Start Date Occupation Not on file Not on file Not on file Travel End Travel History Travel Start No recent travel history available. Last Filed Vital Signs Time Taken Vital Sign Reading 09/03/2018 1:00 PM CDT Blood Pressure 135/63 09/03/2018 1:00 PM CDT Pulse 54 09/03/2018 8:01 AM CDT Temperature 36.7 C (98 F) 09/03/2018 1:00 PM CDT Respiratory Rate 21 09/03/2018 1:00 PM CDT Oxygen Saturation 97% - Inhaled Oxygen - Concentration 09/03/2018 5:56 AM CDT Weight 66.9 kg (147 lb 7 oz) 09/03/2018 5:56 AM CDT Height 152.4 cm (5') 09/03/2018 5:56 AM CDT Body Mass Index 28.79 Plan of Treatment Health Maintenance Due Date Last Done Comments BREAST CANCER SCREENING 2006 COLONOSCOPY SCREENING 2006 SHINGLES VACCINES (#1) 2006 INFLUENZA VACCINE 11/15/2018 Procedures Comments Procedure Name Priority Date/Time Associated Diagnosis POC PANEL Routine 09/03/2018 12:59 PM CDT ESTIMATED GFR Routine 09/03/2018 12:59 PM CDT ESTIMATED GFR Routine 09/03/2018 12:40 PM CDT BASIC METABOLIC PANEL Routine 09/03/2018 12:40 PM CDT POC PANEL Routine 09/03/2018 10:54 AM CDT ESTIMATED GFR Routine 09/03/2018 10:54 AM CDT ESTIMATED GFR Routine 09/03/2018 10:17 AM CDT BASIC METABOLIC PANEL Routine 09/03/2018 10:17 AM CDT CV LEFT HEART CATH LV Routine 09/03/2018 Angina at rest (HCC) GRAM WITH CORS 7:47 AM CDT POC PANEL Routine 09/03/2018 5:58 AM CDT ESTIMATED GFR Routine 09/03/2018 5:58 AM CDT ECG 12-LEAD STAT 09/03/2018 5:36 AM CDT XR CHEST 2 VW Routine 07/03/2018 COPD, mild (HCC) 6:11 PM CDT after 09/30/2017 Results * Estimated GFR (09/03/2018 12:59 PM CDT) Only the most recent of 5 results within the time period is included. [facility] Estimated GFR >=90 mL/min/1.73 m2 [place] Comment: [facility] rpretation G1 >=90 Normal or high G2 60-89Mildly decreased G8c78-26 Mildly to moderately decreased D1q35-96 Moderately to severely decreased G4 15-29Severely decreased G5 <15Kidney failure The eGFR was calculated using the Chronic Kidney Disease Epidemiology Collaboration (CKD-EPI) equation. Interpretation is based on recommendations of the National Kidney Foundation-Kidney Disease Outcomes Quality Initiative (NKF-KDOQI) published in 2014. Specimen Blood Performing Organization Address City/[facility] Phone Number [facility] [place] [address] PATHOLOGY AND [facility] MEDICINE [address] * POC panel (09/03/2018 12:59 PM CDT) Only the most recent of 3 results within the time period is included. [facility] POC sodium 137 135 - 148 mmol/L [facility] POC potassium 3.4 (L) 3.5 - 5.0 mmol/L [facility] POC chloride 95 (L) 99 - 109 mmol/L [facility] POC CO2 29 24 - 31 mmol/L [facility] POC glucose 93 65 - 99 mg/dL [facility] POC BUN 11 8 - 24 mg/dL [facility] POC creatinine 0.7 0.5 - 0.9 mg/dl [facility] POC hematocrit 39 37 - 47 % [facility] POC anion gap 18 8 - 20 mmol/L [place] Comment: [facility] Meter ID: [id number] [facility] Vp Informatics: Pancho Ratliff Specimen Performing Organization Address City/[facility]/Zipcode Phone Number [address] [address] PATHOLOGY AND GENOMIC MEDICINE [address] * Basic metabolic panel (09/03/2018 12:40 PM CDT) Only the most recent of 2 results within the time period is included. Sodium 136 135 - 148 mEq/L [facility] Potassium 3.5 3.5 - 5.0 mEq/L [facility] Chloride 98 98 - 112 mEq/L [facility] CO2 28 24 - 31 mEq/L [facility] Anion gap 10@ANIO 7 - 15 mEq/L [facility] BUN 12 8 - 23 mg/dL [facility] Creatinine 0.73 0.50 - 0.90 mg/dL [facility] Glucose 97 65 - 99 mg/dL [facility] Calcium 8.9 8.8 - 10.2 mg/dL [facility] Specimen Plasma specimen Performing Organization Address City/State/Zipcode Phone Number [facility] DEPARTMENT OF [address] [place] [address] PATHOLOGY AND GENOMIC MEDICINE [address] * Cv civil laboratory technician procedure (09/03/2018 7:47 AM CDT) Specimen Narrative Performed At [facility] REPORT PATIENT NAME: DANIEL SMITH ENCOUNTER NO: [id number] DATE OF : 1955 DATE OF ADMISSION: 09/03/2018 DATE OF OPERATION: 09/03/2018 SURGEON: ISRAEL PRESTON MD ADMITTING PHYSICIAN: ISRAEL PRESTON MD PROCEDURE: Left heart catheterization. PROCEDURE IN DETAIL: The patient was brought to the civil laboratory technician.Her left and right groins were prepared in the normal sterile fashion.She was given conscious sedation in the form of Versed.Of note, her potassium was 3 on prior labs.We gave her 20 mEq of potassium at least an hour before the procedure and then gave her 10 mEq in the civil laboratory technician to correct her hypokalemia.We then placed a 6-Amharic sheath in the right common femoral artery according to protocol.We went up first with a Kimberly left catheter, we engaged the left main.The left main was a jygodr-rs-[id number] sized vessel, had no significant lesions in it.It gave off an LAD, which was small, but had 1 major diagonal branch and several small diagonal branches, all free of disease.The left main was free of disease.The circumflex was a medium-sized vessel, it gave off a sentinel OM, there was free of disease.We then went in with the Gilberto right catheter, engaged the right coronary artery.The right coronary was a medium-sized vessel, it gave off a PD and a PL branch, all free of disease; then placed the pigtail catheter in the LV and major EDP, which was around 9 to 10 mmHg.We then did an ejection fraction, which was 60%.There was no gradient on pullback.Dye used was about 70 mL and blood loss about 20 mL.There were no complications.No arrhythmic events. [id number] Conf/ / Ref#: [id number] CC: [id number]/ISRAEL PRESTON MD [id number]/ISRAEL PRESTON MD Performing Organization Address [facility] Hospitalcomi Phone Number [facility] [address] [place] [address] * ECG 12 lead (09/03/2018 5:36 AM CDT) Ventricular 51 [facility] rate Atrial rate 51 [facility] AL interval 144 [facility] QRSD interval 90 [facility] QT interval 462 [facility] QTC interval 425 [facility] P axis 1 21 [facility] QRS axis 1 -4 [facility] T wave axis 28 [facility] EKG impression Sinus bradycardia-Otherwise [facility] MUSE normal ECG-No previous ECGs available- Specimen Narrative Performed At Performing Organization Address [facility] Phone Number [employer] MUSE [address] [place] [address] * XR Chest 2 Vw (07/03/2018 6:11 PM CDT) Specimen Narrative Performed At EXAMINATION:XR CHEST 2 VW RADIANT CLINICAL HISTORY:J44.9 Chronic obstructive pulmonary diseaseunspecified, [...] osseous abnormality. IMPRESSION: No acute cardiopulmonary abnormality. [facility]-[id number] Procedure Note Hm Interface, Radiology Results Incoming - 07/03/2018 6:16 [...] osseous abnormality. IMPRESSION: No acute cardiopulmonary abnormality. [facility]-[id number] Performing Organization Address City/State/Zipcode Phone Number [facility] [address] [place] [address] after 09/30/2017 Insurance Type Payer Benefit Subscriber ID Effective Phone Address Plan / Dates Group PPO BCBS BCBS xxxxxxxxxxxxxx [id number] CHOICE resent PPO/CATHERINE REINOSO PPO Advance Directives Patient has advance care planning documents on file. For more information, kameron burdick contact: [facility] [address] [place] [address]
[2018-10-01] MEDS ORDERED: LIDOCAINE HCL 1% LOCAL INJ 20 ML VIAL INJ ONE (12:00)
--- NOTE | 2018-10-01 12:54 | NUR ---
MICHELLE Gan AT BEDSIDE. I/D OR RIGHT GROIN ABCИВАН
[2018-10-01] MEDS ORDERED: TETANUS/DIPHTHERIA TOX ADULT 0.5 ML SYR IM ONE (13:45)
== END 2018-10-01 13:52 | disposition home or self-care (01) ==
LOC: ER 11:14
DX: L02.214 Cutaneous abscess of groin (principal); I10 Essential (primary) hypertension; E78.5 Hyperlipidemia, unspecified; Z95.5 Presence of coronary angioplasty implant and graft
CPT/HCPCS: 10061; 90471; 90714; 99283; J2001

== ENCOUNTER → 2020-08-04 | Outpatient (CLI) | payer BC ==
[~2020-08-04] MED LIST changes: +ATORVASTATIN CA20 MG PO; +KEFLEX500 MG PO; +PANTOPRAZOLE SO40 MG PO
== END ==
LOC: US 12:20
PROVIDERS: ATTEND Family Medicine
DX: R10.11 Right upper quadrant pain (principal)
CPT/HCPCS: 76705

== ENCOUNTER → 2020-08-14 | Outpatient (CLI) | payer BC | LOC: NM 08:32 | PROVIDERS: ATTEND Family Medicine | DX: R10.11 Right upper quadrant pain (principal) | CPT/HCPCS: 78227; A9537 ==